=== PATIENT | male | born 2000 | race Caucasian/White ===

== ENCOUNTER 2021-06-08 18:30 | Inpatient (IN) | payer BC ==
[~2021-06-08] VITALS: Ht 165.1 cm; Wt 63.5 kg
[2021-06-08] MEDS ORDERED: NOVOLOG100 UNIT/1 SQ (18:45)
== END 2021-06-11 13:55 | disposition left against medical advice (07) | DRG 638 ==
LOC: ER 18:30 → ICU-2 06-09 12:04
PROVIDERS: ADMIT Internal Medicine; ATTEND Internal Medicine
DX: E11.10 Type 2 diabetes mellitus with ketoacidosis without coma (principal); N17.8 Other acute kidney failure; E86.0 Dehydration; E87.8 Other disorders of electrolyte and fluid balance, not elsewhere classified; Z20.822 Contact with and (suspected) exposure to COVID-19; Z79.4 Long term (current) use of insulin